=== PATIENT | male | born 1930 | race Caucasian/White ===

== ENCOUNTER 2016-05-02 11:40 | Emergency (ER) | payer MEDICARE, BC, OTHER ==
--- NOTE | 2016-05-02 12:12 | ER Document Report ---
ED Fall - General Mode of Arrival: Medic Information source: Patient - HPI Patient complains to provider of: Head Injury secondary to Fall Occurred: Just prior to arrival Where: Public place Context: Fell from standing Associated symptoms: Other - see above Location of injury/pain: Head - posterior aspect <TASHIA CROFT - Last Filed: 05/02/16 12:02> <ALLYSSA MARTINEZ - Last Filed: 05/02/16 16:12> - General Chief Complaint: Fall Injury Stated Complaint: FAINTING Notes: 85 year old male with history of cardiomyopathy and atrial fibrillation (with pacemaker and defibrillator) presents to the ED via EMS after losing consciousness, falling, and hitting the posterior aspect of his head on the ground while walking to the restroom at [employer] just prior to arrival. Patient reports that he was not having any urinary urgency, but felt dizzy and stopped momentarily before falling out. People around him state that he hit his head on the ground when falling. Patient has had similar dizzy episodes in the past prior to getting his pacemaker and defibrillator. Patient was diagnosed with cardiomyopathy secondary to multiple cardiac tests regarding the dizzy spells. Patient states that he was hospitalized in [place] for 3 days secondary to his defibrillator firing multiple times while at home. Patient's medications were adjusted (Sotalol was added) while at [place]. Patient is currently taking Sotalol, baby aspirin, Lasix, and Losartan. (TASHIA CROFT) Past Medical History - General Information source: Patient - Social History Smoking Status: Unknown if Ever Smoked Family History: Reviewed & Not Pertinent - Past Medical History Cardiac Medical History: Reports: Hx Atrial Fibrillation, Hx Hypertension Malignancy Medical History: Reports Hx Prostate Cancer - Resection and extrenal beam radition were performed. Past Surgical History: Reports: Other - Prostatic resection secondary to prostate cancer 11 yeras ago. <TASHIA CROFT - Last Filed: 05/02/16 12:02> Review of Systems - Review of Systems Constitutional: No symptoms reported EENT: No symptoms reported Cardiovascular: No symptoms reported Respiratory: No symptoms reported Gastrointestinal: No symptoms reported Genitourinary: No symptoms reported Male Genitourinary: No symptoms reported Musculoskeletal: No symptoms reported Skin: See HPI, Other - bleeding to the posterior aspect of the head secondary to fall Hematologic/Lymphatic: No symptoms reported Neurological/Psychological: No symptoms reported -: Yes All other systems reviewed and negative <TASHIA CROFT - Last Filed: 05/02/16 12:02> Physical Exam - General General appearance: Alert In distress: None - HEENT Head: Other - Occipital hematoma with contusion crushed skin with mild bleeding.. No: Normocephalic, Atraumatic Eyes: Normal Pupils: PERRL - Respiratory Respiratory status: No respiratory distress Breath sounds: Normal - Cardiovascular Rhythm: Regular Heart sounds: Normal auscultation - Abdominal Inspection: Normal - Back Back: Normal - Extremities General upper extremity: Normal inspection, Normal ROM General lower extremity: Normal inspection, Normal ROM - Neurological Neuro grossly intact: Yes - Psychological Associated symptoms: Normal affect, Normal mood - Skin Skin Temperature: Warm Skin Moisture: Dry Skin Color: Normal <TASHIA CROFT - Last Filed: 05/02/16 12:02> - HEENT Head: Other - Occipital hematoma with contusion crush injury with a 5 cm curved laceration into the deep space. The galea is not involved on exploration following anesthetizing the tissue. <ALLYSSA MARTINEZ - Last Filed: 05/02/16 16:12> - Vital signs Vitals: Resp 16 05/02/16 11:44 Course <TASHIA CROFT - Last Filed: 05/02/16 12:02> - Laboratory Result Diagrams: 05/02/16 12:00 05/02/16 12:00 - Diagnostic Test Radiology reviewed: Reports reviewed - CT of the head shows scalp hematoma, chronic intracranial changes, nothing acute intracranially. - EKG Interpretation by Sc EKG shows normal: QRS Complexes, ST-T Waves. abnormal: Twain - LAD Rhythm: Other - A-V dual-paced rhythm with some inhibition Twain/QRS: IVCD Heart block present: 1st Degree When compared to previous EKG there are: Previous EKG unavailable - Consults Dr. Salazar Time consulted: 14:00 Consulted provider: follow-up in office - No driving. See in the office tomorrow. <ALLYSSA MARTINEZ - Last Filed: 05/02/16 16:12> - Re-evaluation Re-evalutation: 05/02/16 12:54 The patient's defibrillator was interrogated, showing one shock at 10:57 AM due to ventricular tachycardia with a rate of 195. This would coincide with the patient reporting that he felt dizzy lightheaded, and then later woke up on the floor. (ALLYSSA MARTINEZ) - Vital Signs Vital signs: Temp Pulse Resp BP Pulse Ox 98.4 F 74 23 H 138/103 H 98 05/02/16 11:48 05/02/16 11:48 05/02/16 13:01 05/02/16 13:01 05/02/16 13:01 - Laboratory Laboratory results interpreted by me: 05/02/16 05/02/16 12:00 12:00 RBC 3.36 L Hgb 11.1 L Hct 32.1 L BUN 28 H Glucose 126 H Total Protein 6.2 L Procedures - Laceration/Wound Repair Posterior Head Time completed: 15:55 Wound length (cm): 5 Wound's Depth, Shape: Into muscle, Stellate, Contused tissue Laceration pre-procedure: Sterile drapes applied, Shur-Clens applied Anesthetic type: 2% Lidocaine - 2% lidocaine with epinephrine, the hospital is out of 1% with epinephrine Volume Anesthetic (mLs): 6 Wound explored: Clean, No foreign body removed Irrigated w/ Saline (mLs): 20 Wound Debrided: Minimal Wound Repaired With: Sutures Suture Size/Type: 3:0 Number of Sutures: 6 Layer Closure?: No Post-procedure wound care: Sterile dressing applied Post-procedure NV exam normal: Yes Complications: No <ALLYSSA MARTINEZ - Last Filed: 05/02/16 16:12> Discharge <TASHIA CROFT - Last Filed: 05/02/16 12:02> <ALLYSSA MARTINEZ - Last Filed: 05/02/16 16:12> - Discharge Clinical Impression: Syncope and collapse, Ventricular tachycardia (paroxysmal), Defibrillator discharge Contusion of occipital region of scalp Qualifiers: Encounter type: initial encounter Qualified Code(s): S00.03XA - Contusion of scalp, initial encounter Occipital scalp laceration Qualifiers: Encounter type: initial encounter Qualified Code(s): S01.01XA - Laceration without foreign body of scalp, initial encounter Condition: Stable Disposition: HOME, SELF-CARE Additional Instructions: Scalp Laceration: A scalp laceration requires little care. Dressings are applied only if severe bleeding or a large flap are present. Usually, once the cut is sutured, you can ignore it. Simply comb the hair over top of it to hide the stitches and go about your usual routine. You can shampoo your hair as needed starting tomorrow. If you need to wear a special hat or protective helmet for work, be careful that it doesn't press on the area. If crusting is bothersome, you can soften the crusts with Polysporin ointment, then shampoo. Infection in a scalp laceration is rare. If any signs of infection occur ( swelling, redness, increasing tenderness, red streaks, tender lumps in the neck on the side of the laceration, or fever), see the doctor immediately. Scalp Hematoma: You have a scalp hematoma. This is a bump caused by blood underneath the scalp. This is a common injury, and usually causes only mild local pain or headache. There is no evidence of a skull fracture or of a brain injury. A scalp hematoma will usually disappear after a few days. Put cold packs on the swollen area for 20-30 minutes every 2-3 hours until the swelling improves. Use acetaminophen or ibuprofen for pain. Avoid aspirin because this may increase bleeding under the scalp. You may have a mild headache for a few days. Call the doctor or return if there is severe headache, confusion, personality changes, vomiting, severe dizziness, or difficulty with balance or coordination. USE ICE-PACKS TO THE SCALP WOUND TODAY TO REDUCE SWELLING. DO NOT DRIVE. TAKE TYLENOL FOR PAIN IF NEEDED. FOLLOW UP WITH DR. SALAZAR TOMORROW--CALL IN THE MORNING FOR AN APPOINTMENT TIME. HAVE THE SUTURES REMOVED IN 7-10 DAYS. RETURN TO THE EMERGENCY ROOM IF ANY NEW OR WORSENING SYMPTOMS. Scribe Attestation: 05/02/16 16:10 I personally performed the services described in the documentation, reviewed and edited the documentation which was dictated to the scribe in my presence, and it accurately records my words and actions. (ALLYSSA MARTINEZ) Scribe Documentation - Scribe Written by Richard:: Richard Harris, 05/02/2016 1218 acting as scribe for :: Priti <TASHIA CROFT - Last Filed: 05/02/16 12:02>
[2016-05-02 12:19] LABS: ABSOLUTE BASOPHILS # (AUTO) 0.1 10^3/uL (0.0-0.2); ABSOLUTE EOSINOPHILS # (AUTO) 0.2 10^3/uL (0.0-0.6); ABSOLUTE LYMPHOCYTES (AUTO) 0.9 10^3/uL (0.5-4.7); ABSOLUTE MONOCYTES (AUTO) 0.4 10^3/uL (0.1-1.4); ABSOLUTE NEUT (AUTO) 4.2 10^3/uL (1.7-8.2); BASOPHILS % (AUTO) 1.2 % (0-2); HEMATOCRIT 32.1 % (37.9-51.0); HEMOGLOBIN 11.1 g/dL (13.5-17.0); HGB HCT DIFFERENCE 1.2; MEAN CORPUSCULAR HGB CONC 34.5 g/dL (32.0-36.0); MEAN CORPUSCULAR VOLUME 96 fl (80-97); MONOCYTES % (AUTO) 7.5 % (3-13); RED BLOOD COUNT 3.36 10^6/uL (4.35-5.55); RED CELL DISTRIBUTION WIDTH 13.5 % (11.5-14.0); SEGMENTED NEUTROPHILS % (AUTO) 72.3 % (42-78); WHITE BLOOD COUNT 5.8 10^3/uL (4.0-10.5)
[2016-05-02 12:37] LABS: ALANINE AMINOTRANSFERASE 32 U/L (21-72); ALBUMIN 3.6 g/dL (3.5-5.0); ALKALINE PHOSPHATASE 70 U/L (38-126); ANION GAP 8 (5-19); ASPARTATE AMINO TRANSFERASE 22 U/L (17-59); BILIRUBIN,TOTAL 0.6 mg/dL (0.2-1.3); BLOOD UREA NITROGEN 28 mg/dL (7-20); CALCIUM 9.1 mg/dL (8.4-10.2); CARBON DIOXIDE 26 mmol/L (22-30); CHLORIDE 105 mmol/L (98-107); CREATINE KINASE 55 U/L (55-170); CREATININE RESULT 0.99 mg/dL (0.52-1.25); GLUCOSE 126 mg/dL (75-110); POTASSIUM 4.2 mmol/L (3.6-5.0); SODIUM 138.8 mmol/L (137-145); TOTAL PROTEIN 6.2 g/dL (6.3-8.2)
[2016-05-02 12:54] LABS: CREATINE KINASE MB 1.49 ng/mL (<4.55)
[2016-05-02 12:55] LABS: TROPONIN I < 0.012 ng/mL
[2016-05-02 12:56] LABS: ADD ON TESTING BLD IN LAB ACKNOWLEDGE
[2016-05-02 13:10] LABS: MAGNESIUM 1.9 mg/dL (1.6-2.3)
[2016-05-02] MEDS ORDERED: LIDOCAINE 1%/EPINEPHRINE INJ 20 ML VIAL INJ ONE (14:13)
[2016-05-02] MEDS ORDERED: LIDOCAINE 2%/EPINEPHRINE INJ 20 ML VIAL INJ ONE (15:11)
[2016-05-02 16:39] VITALS: BP 132/60
[2016-05-02 16:43] LABS: APPEARANCE,URINE CLEAR; BILIRUBIN,URINE NEGATIVE (NEGATIVE); GLUCOSE, URINE NEGATIVE (NEGATIVE); KETONES,URINE NEGATIVE (NEGATIVE); LEUKOCYTE ESTERASE,URINE NEGATIVE (NEGATIVE); NITRITE,URINE NEGATIVE (NEGATIVE); PROTEIN,URINE NEGATIVE (NEGATIVE); URINE SPECIFIC GRAVITY 1.019; UROBILINOGEN,URINE NEGATIVE mg/dL (<2.0)
--- NOTE | 2016-05-03 05:38 | EKG REPORT ---
SEVERITY:- ABNORMAL ECG - A-V DUAL-PACED RHYTHM WITH SOME INHIBITION FIRST DEGREE AV BLOCK NONSPECIFIC IVCD WITH LAD : Confirmed by: Eufemia Orellana MD 03-May-2016 05:37:24
== END 2016-05-02 16:18 | disposition home or self-care (01) ==
LOC: ER 11:40
PROC: 0HQ0XZZ Repair Scalp Skin, External Approach (ICD-10-PCS; principal; 2016-05-02)
DX: I47.2 Ventricular tachycardia (principal); S01.01XA Laceration without foreign body of scalp, initial encounter; R42 Dizziness and giddiness; W18.39XA Other fall on same level, initial encounter; Y92.512 Supermarket, store or market as the place of occurrence of the external cause; I48.91 Unspecified atrial fibrillation; I10 Essential (primary) hypertension; Z95.810 Presence of automatic (implantable) cardiac defibrillator; Z79.82 Long term (current) use of aspirin; Z85.46 Personal history of malignant neoplasm of prostate
CPT/HCPCS: 12002; 93005; 99285; 36415; 82553; 82550; 83735; 85025; 80053; 81001; 84484; 70450; 93010; J3490